=== PATIENT | female | born 1995 ===

== ENCOUNTER 2017-01-03 02:59 | Emergency (ER) | payer OTHER ==
[2017-01-03 03:11] VITALS: BP 141/84; PULSE 108; TEMP 98.9; BMI 41.6
--- NOTE | 2017-01-03 03:11 | PDOC ---
History of Present Illness - General Chief Complaint: Pain, Acute Stated Complaint: ABDOMINAL PAIN X 1 WEEK History Source: Patient Exam Limitations: No Limitations - History of Present Illness Initial Comments: 01/03/17 03:28 21 healthy femal has had "spotty periods the past couple of months and has had vaginal bleeding after having sex twice now, tonight the 12th and last week on the 4th. No real pain, but she says that she gets an uncomfortable sensation in her abdomen if she is up on her feet for too long. No associated symptoms or complaint. Generally Healthy, No PMH, No PSH, No Meds, No Tobacco or Alcohol until recently, also experimenting with marijuana and cocaine., ROS completely negative. Not sure exactly when last menstrual period was although she believes it was . Timing/Duration: 1 week Severity: mild Associated Symptoms: denies: denies symptoms Past History - Past Medical History Allergies/Adverse Reactions: Allergies Allergy/AdvReac Type Severity Reaction Status Date / Time No Known Allergies Allergy Verified 01/03/17 03:01 Home Medications: Ambulatory Orders NK [No Known Home Medication] 01/03/17 Other medical history: DENIES - Psycho/Social/Smoking Cessation Hx Anxiety: No Suicidal Ideation: No Smoking History: Current some day smoker Have you smoked in the past 12 months: Yes Number of Cigarettes Smoked Daily: 3 Information on smoking cessation initiated: Yes 'Breaking Loose' booklet given: 01/03/17 Hx Alcohol Use: Yes (OCCAS.) Drug/Substance Use Hx: Yes (COCAINE/WEED) Substance Use Type: None Review of Systems - Review of Systems Able to Perform ROS?: Yes Is the patient limited Setswana proficient: No Constitutional: No: Symptoms Reported HEENTM: No: Symptoms Reported Respiratory: No: Symptoms reported Cardiac (ROS): No: Symptoms Reported ABD/GI: No: Symptoms Reported : No: Symptoms Reported Musculoskeletal: No: Symptoms Reported Integumentary: No: Symptoms Reported Neurological: No: Symptoms reported Psychiatric: No: Anxiety, Depression Endocrine: No: Symptoms Reported Hematologic/Lymphatic: No: Symptoms Reported All Other Systems: Reviewed and Negative *Physical Exam - Vital Signs Last Vital Signs Temp Pulse Resp BP Pulse Ox 98.9 F 108 H 18 141/84 98 01/03/17 03:02 01/03/17 03:02 01/03/17 03:02 01/03/17 03:02 01/03/17 03:02 - Physical Exam Comments: 01/03/17 03:34 21 yo female, awake, alert, NAD General Appearance: Yes: Nourished, Appropriately Dressed HEENT: positive: EOMI, FORREST, Normal Voice Neck: positive: Tender, Supple Respiratory/Chest: positive: Lungs Clear, Normal Breath Sounds Cardiovascular: positive: Regular Rhythm, Regular Rate. negative: Murmur Female Pelvic Exam: positive: other (Not Done) Gastrointestinal/Abdominal: positive: Normal Bowel Sounds, Flat, Soft. negative : Tender Rectal Exam: positive: deferred Lymphatic: negative: Adenopathy, Tenderness Musculoskeletal: positive: Normal Inspection Extremity: positive: Normal Inspection Integumentary: positive: Normal Color, Dry, Warm Neurologic: positive: Fully Oriented, Alert, Normal Mood/Affect Medical Decision Making - Medical Decision Making 01/03/17 03:36 patient did not want to wait for us to send labs to main campus or call in ultrasound. She showed me picutres of the four clots the size of silver dollar coins that she passed last week after sex. she said the same thing happened tonight. I explained we needed a test, a pelvic exam with a speculum , and a ultrasound. She does not want to wait for labs or ultrasound. She was encouraged to go first thing in the morning to see her [facility] [employer] doctor. *DC/Admit/Observation/Transfer Diagnosis at time of Disposition: Vaginal bleeding - Discharge Dispostion Disposition: HOME Condition at time of disposition: Unchanged/Unknown Admit: No - Patient Instructions Printed Discharge Instructions: DI for Vaginal Bleeding Additional Instructions: Opal- There is not much I can tell you without doing some tests. Please see your regular doctor tomorrow. You need a test, an ultrasound and a pelvic exam. Return to us if you change your mind and would like us to do those things for you. Paul- Dr. Alf Dale
== END 2017-01-03 03:44 | disposition home or self-care (01) ==
LOC: FER 02:59
DX: N93.9 Abnormal uterine and vaginal bleeding, unspecified (principal)
CPT/HCPCS: 99281-25

== ENCOUNTER 2018-03-23 06:48 | Emergency (ER) | payer OTHER ==
[2018-03-23 06:58] VITALS: BP 138/89; PULSE 87; TEMP 98.3; BMI 40.8
--- NOTE | 2018-03-23 07:24 | PDOC ---
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 She states she has had abscesses in the same location in the past, it recurs every few months. No open lesions, no fever, no malaise. +Dull localized pain. Past History - Past Medical History Allergies/Adverse Reactions: Allergies Allergy/AdvReac Type Severity Reaction Status Date / Time No Known Allergies Allergy Verified 01/03/17 03:01 Home Medications: Ambulatory Orders Cephalexin Monohydrate [Keflex -] 500 mg PO Q6H #28 capsule 03/23/18 Sulfamethoxazole/Trimethoprim [Bactrim Ds -] 1 tab PO BID #14 tablet 03/23/18 COPD: No Other medical history: CIOP - Suicide/Smoking/Psychosocial Hx Smoking History: Current every day smoker Have you smoked in the past 12 months: Yes Number of Cigarettes Smoked Daily: 8 Information on smoking cessation initiated: Yes 'Breaking Loose' booklet given: 03/23/18 Hx Alcohol Use: Yes (OCCAS.) Drug/Substance Use Hx: Yes (COCAINE/WEED) Substance Use Type: None Review of Systems - Review of Systems Able to Perform ROS?: Yes Comments:: GENERAL/CONSTITUTIONAL: No fever or chills. No weakness. HEAD, EYES, EARS, NOSE AND THROAT: No change in vision. No ear pain or discharge. No sore throat. MUSCULOSKELETAL: No joint or muscle swelling or pain. No neck or back pain. SKIN: L groin swelling and pain. NEUROLOGIC: No headache, vertigo, loss of consciousness, or change in strength/ sensation. ENDOCRINE: No increased thirst. No abnormal weight change. HEMATOLOGIC/LYMPHATIC: No anemia, easy bleeding, or history of blood clots. ALLERGIC/IMMUNOLOGIC: No hives or skin allergy. *Physical Exam - Vital Signs Last Vital Signs Temp Pulse Resp BP Pulse Ox 98.3 F 87 16 138/89 100 03/23/18 06:51 03/23/18 06:51 03/23/18 06:51 03/23/18 06:51 03/23/18 06:51 - Physical Exam Comments: GENERAL: Awake, alert, and fully oriented, in no acute distress HEAD: No signs of trauma EYES: PERRLA, EOMI, sclera anicteric, conjunctiva clear EXTREMITIES: Normal range of motion, no edema. No clubbing or cyanosis. No cords, erythema, or tenderness NEUROLOGICAL: Cranial nerves II through XII grossly intact. Normal speech, normal gait SKIN: Warm, Dry, normal turgor. L groin with 2cm area of fluctuance, approximately 1-2cm of surrounding induration Moderate Sedation - Procedure Monitoring Vital Signs: Procedure Monitoring Vital Signs Temperature 98.3 F 03/23/18 06:51 Pulse Rate 87 03/23/18 06:51 Respiratory Rate 16 03/23/18 06:51 Blood Pressure 138/89 03/23/18 06:51 O2 Sat by Pulse Oximetry (%) 100 03/23/18 06:51 Procedures - Incision and Drainage I&D Site: Left: Groin Anesthesia: 1% Lidocaine Volume(ml): 1 Blade Size: 11 Attempts: 1 Complications: none Dressing: Yes Progress: 03/23/18 07:37 Area was cleansed with alcohol prep. Lidocaine 1% infiltrated locally. Small incision was made with expression of copious purulent material. Wound culture obtained. Loculations broken. Sterile gauze and bacitracin placed. Pt tolerated well, minimal blood loss. Medical Decision Making - Medical Decision Making Based on history of prior abscesses in the same location (pt with prior scar present), recommended follow up with a general surgeon, as there is a pocket there that will likely keep forming infections. They may be able to resect it. Patient provided with f/u information- surgeon catering operations manager as well as list of general surgeons in the hospital system in case of insurance issues. *DC/Admit/Observation/Transfer Diagnosis at time of Disposition: Skin abscess Qualifiers: Site of cutaneous abscess: trunk Site of cutaneous abscess of trunk: groin Qualified Code(s): L02.214 - Cutaneous abscess of groin - Discharge Dispostion Disposition: HOME Condition at time of disposition: Improved Decision to Admit order: No - Prescriptions Prescriptions: Cephalexin Monohydrate [Keflex -] 500 mg PO Q6H #28 capsule Sulfamethoxazole/Trimethoprim [Bactrim Ds -] 1 tab PO BID #14 tablet - Referrals Referrals: Vlad Valencia MD [Staff Physician] - Nathan Baer [Primary Care Provider] - - Patient Instructions Printed Discharge Instructions: DI for Incision and Drainage of a Skin Abscess - Post Discharge Activity
== END 2018-03-23 07:32 | disposition home or self-care (01) ==
LOC: FER 06:48
PROC: 0H9AXZZ Drainage of Inguinal Skin, External Approach (ICD-10-PCS; principal; 2018-03-23)
DX: L02.214 Cutaneous abscess of groin (principal); F17.210 Nicotine dependence, cigarettes, uncomplicated; G61.81 Chronic inflammatory demyelinating polyneuritis
CPT/HCPCS: 10060; 87070; 87205; 99282-25